=== PATIENT | male | born 2000 | race Two or more races ===

== ENCOUNTER 2020-10-11 23:26 | Emergency (ER) | payer BC, OTHER ==
[~2020-10-11] VITALS: Ht 175.3 cm; Wt 116.5 kg
[2020-10-11 23:43] VITALS: BP 118/79
[2020-10-12] MEDS ORDERED: METOCLOPRAMIDE 5 MG/ML, 2ML IVPush ONE
[2020-10-12] MEDS ORDERED: SODIUM CHLORIDE 0.9% 1,000ML IVBOLUS ONE
[2020-10-12] MEDS ORDERED: DIPHENHYDRAMINE 50 MG/ML, 1ML IVPush ONE
[2020-10-12] MEDS ORDERED: KETOROLAC 30 MG/1 ML IVPush ONE
[2020-10-12] MEDS ORDERED: SODIUM CHLORIDE FLUSH 10ML SYR IVF ONE
[2020-10-12 00:08] LABS: BASOPHILS % (AUTO) 1 % (0-1); EOSINOPHILS % (AUTO) 2 % (1-7); LYMPHOCYTES % (AUTO) 20 % (22-44); MEAN CORPUSCULAR HEMOGLOBIN 28.5 pg (27.5-34.5); MEAN CORPUSCULAR HGB CONC 34.2 g/dL (33.2-36.2); MEAN PLATELET VOLUME 6.6 fL (7.4-10.4); MONOCYTES % (AUTO) 6 % (2-9); NEUTROPHILS % (AUTO) 71 % (42-75); PLATELET COUNT 385 x10^3/uL (130-400); RED BLOOD COUNT 5.55 x10^6/uL (4.38-5.82)
[2020-10-12 00:19] LABS: ALANINE AMINOTRANSFERASE 49 U/L (12-78); ALBUMIN 3.8 g/dL (3.4-5.0); ANION GAP 4 mmol/L (5-15); CALCIUM 9.5 mg/dL (8.5-10.1); CHLORIDE 107 mmol/L (98-107); CREATININE 0.98 mg/dL (0.7-1.3)
[2020-10-12 00:21] LABS: ALKALINE PHOSPHATASE 99 U/L (45-117); BILIRUBIN,TOTAL 0.6 mg/dL (0.2-1.0)
[2020-10-12] MEDS ORDERED: KETOROLAC 30 MG/1 ML ONE (01:36)
[2020-10-12] MEDS ORDERED: METOCLOPRAMIDE 5 MG/ML, 2ML ONE (01:36)
[2020-10-12] MEDS ORDERED: DIPHENHYDRAMINE 50 MG/ML, 1ML ONE (01:36)
--- NOTE | 2020-10-12 01:36 | NUR ---
PT AMBULATED TO ROOM 17 WITHOUT PROBLEMS. PLACED ON CR MONITOR. AND MD TO EVAL.
--- NOTE | 2020-10-12 02:38 | NUR ---
Patient given discharge instructions and they have confirmed that they understand the instructions. Patient ambulatory with steady gait. NAD, all questions answered appropriately, denies additional needs at this time. No personal belongings left in room after discharge.
== END 2020-10-12 02:39 | disposition home or self-care (01) ==
LOC: ED 23:59
DX: G43.009 Migraine without aura, not intractable, without status migrainosus (principal); R07.89 Other chest pain; Z87.891 Personal history of nicotine dependence
CPT/HCPCS: 36415; 70450; 80053; 85025; 96374; 96375; 99284; J1200; J1885; J2765; J7030